=== PATIENT | female | born 1965 ===

== ENCOUNTER 2017-01-18 07:42 | Day surgery (SDC) | payer SELFPAY ==
[2017-01-06 11:56] VITALS: BMI 25.7
[2017-01-18] MEDS ORDERED: cefOXitin IV 1 gm in Dextrose 0 GM/0 ML BAG IVPB ONE (08:33)
[2017-01-18] MEDS ORDERED: Lactated Ringer's 1,000 ML IV ONE ×2 (09:01)
[2017-01-18] MEDS ORDERED: Midazolam 2 MG/2 ML VIAL ONE (09:11)
[2017-01-18] MEDS ORDERED: Propofol 10 mg/ml Inj (20 ML) ONE (09:11)
[2017-01-18] MEDS ORDERED: ePHEDrine 50 mg/ml Inj ONE (09:43)
[2017-01-18] MEDS ORDERED: HYDROmorphone 0.5 mg/0.5 ml ISec IVP PRN (10:06)
--- NOTE | 2017-01-18 10:14 | PCM.SURG1 ---
Surgeon's Initial Post Op Note - Surgeon's Notes Surgeon: Dr. Darlin Schwartz Type of Anesthesia: General Endo Pre-Operative Diagnosis: Endometrial polyp, thickened endometrial lining Operative Findings: same, uterus 8 week sized dextroverted Post-Operative Diagnosis: same Operation Performed: Hysteroscopy dilatation and curettage with myosure Estimated Blood Loss: EBL {In ML}: 10 Blood Products Given: N/A Drains Used: No Drains Post-Op Condition: Good Date of Surgery/Procedure: 01/18/17 Time of Surgery/Procedure: 09:30
[2017-01-18 11:35] VITALS: RESP 18
--- NOTE | 2017-01-18 12:06 | CP.PCM.DIS ---
Provider - Provider Attending physician: Darlin Schwartz Time Spent in preparation of Discharge (in minutes): 15 Hospital Course - Hospital Course Hospital Course: Patient underwent hysteroscopy d&C with myosure and tolerated procedure well. She was discharged home after she was ambulating, voiding, tolerating regular diet. Discharge Plan - Follow Up Plan Condition: GOOD Disposition: DISCHARGED TO HOME CARE
[2017-01-18 12:34] VITALS: BP 113/62; PULSE 83; TEMP 97.6; O2SAT 100
--- NOTE | 2017-01-18 19:09 | OP ---
DATE OF PROCEDURE: 01/18/2017 PREOPERATIVE DIAGNOSES: Endometrial polyp and thickened endometrial lining. POSTOPERATIVE DIAGNOSES: Endometrial polyp and thickened endometrial lining. SURGERY PERFORMED: Hysteroscopy, D and C with MyoSure. ESTIMATED BLOOD LOSS: 10 mL. There was no blood replaced. DRAIN: Garner catheter drained approximately 50 mL of clear urine at the beginning of the case. COMPLICATIONS: There were no complications. ANESTHESIA USED: General endotracheal. WOUND CONDITION: Does not apply. INTRAOPERATIVE FINDINGS: An 8-week sized uterus, dextroverted, fluffy endometrial tissue and what appeared to be an endometrial polyp. Otherwise normal anatomy. DESCRIPTION OF PROCEDURE: After all of the documentation was reviewed and signed by , the patient was taken back to the OR. After being placed under general anesthesia, she was prepped and draped in the usual sterile fashion and positioned in the lithotomy position. Attention was then placed after bimanual examination. Uterus of approximately 8 weeks' size, dextroverted, was noted. The cervix was then serially dilated and so the hysteroscope was introduced. Once the hysteroscope was introduced, fluffy endometrial tissue was noted and what appeared to be an endometrial polyp. The tissue was then removed with use of a MyoSure. Once the procedure was completed, all the instruments were removed. Excellent hemostasis was noted from the cervix and the patient was then awoken from general anesthesia and taken back to the recovery room in stable condition. All lap counts were correct and instrument counts were correct x2. Darlin Schwartz MD
== END 2017-01-18 12:30 | disposition home health service (06) ==
LOC: C.SDS 07:42
PROVIDERS: ATTEND Obstetrics & Gynecology
DX: N84.0 Polyp of corpus uteri (principal); N92.0 Excessive and frequent menstruation with regular cycle; N94.9 Unspecified condition associated with female genital organs and menstrual cycle; R93.8 Abnormal findings on diagnostic imaging of other specified body structures
CPT/HCPCS: 58558; 88305; J1100; J1885; J2001; J2250; J2405; J2704; J3010; J7120